=== PATIENT | male | born 1985 | race Caucasian/White ===

== ENCOUNTER 2019-05-19 10:16 | Emergency (ER) | payer SELFPAY ==
[2019-05-19] MEDS ORDERED: Bacitracin 1 PK ONE (10:48)
== END 2019-05-19 11:15 | disposition home or self-care (01) ==
LOC: ERS 10:16
DX: L08.9 Local infection of the skin and subcutaneous tissue, unspecified (principal)
CPT/HCPCS: 36416; 99283

== ENCOUNTER 2019-05-29 16:21 | Emergency (ER) | payer SELFPAY | END 2019-05-29 16:43 | LOC: ERS 16:21 | DX: Z11.3 Encounter for screening for infections with a predominantly sexual mode of transmission (principal) | CPT/HCPCS: 99281 ==